=== PATIENT | female | born 1955 | race Caucasian/White ===

== ENCOUNTER 2018-12-29 08:03 | Day surgery (SDC) | payer OTHER ==
[~2018-12-29 08:03] MED LIST: FOLIC PO; GEMFIBROZIL PO; HORIZANT300 MG PO; METHOTREXATE IM; ZOCOR20 MG PO
== END 2018-12-29 20:50 | disposition home or self-care (01) ==
LOC: CIR.AMB 08:03
DX: N81.6 Rectocele (principal)